=== PATIENT | male | born 1990 | race Hispanic/Latino ===

== ENCOUNTER 2021-05-15 17:48 | Emergency (ER) | payer OTHER ==
[2021-05-15 19:46] LABS: Absolute Lymphocytes (CBC) 2.5 K/uL (0.7-4.9); Basophils % 0.6 % (0-1.3); Hematocrit 40.7 % (39.6-49.0); Lymphocytes % 34.4 % (15.3-44.8); MPV 6.6 fL (7.6-11.3); RBC Red Blood Cell Count 4.72 M/uL (4.33-5.43)
[2021-05-15 19:47] LABS: Potassium 3.5 mmol/L (3.5-5.1); Sodium Level 140 mmol/L (136-145)
--- NOTE | 2021-05-15 19:57 | RAD REPORT ---
EXAM DESCRIPTION: CT - Head Brain Wo Cont - 05/15/2021 7:37 pm CLINICAL HISTORY: Headache / hypertension COMPARISON: None. TECHNIQUE: Computed axial tomography of the head was obtained. IV contrast was not requested. All CT scans are performed using dose optimization technique as appropriate and may include automated exposure control or mA/KV adjustment according to patient size. FINDINGS: An intracranial bleed is not seen . The ventricles are normal in caliber. No extra-axial fluid collection is noted. Fluid within the sinuses/ mastoids is not seen. IMPRESSION: No acute intracranial abnormality is seen. If patient's symptoms persist MRI of the bra in would be recommended.
[2021-05-15 20:00] LABS: ALT/SGPT 34 U/L (12-78); AST/SGOT 29 U/L (15-37); Albumin 3.9 g/dL (3.4-5.0); Alkaline Phosphatase 81 U/L (45-117); BUN Blood Urea Nitrogen 17 mg/dL (7-18); Bicarbonate 26 mmol/L (21-32); Bilirubin Direct < 0.1 mg/dL (0-0.2); Bilirubin Total 0.3 mg/dL (0.2-1.0); Glucose Level 101 mg/dL (74-106); Magnesium 2.2 mg/dL (1.8-2.4); NT PRO-BNP 17 pg/mL (<125); Protein, Total 8.2 g/dL (6.4-8.2); Troponin (Emerg Dept Use Only) < 0.02 ng/mL (0.0-0.045)
[2021-05-15 20:02] LABS: Protime INR 1.03
--- NOTE | 2021-05-15 20:04 | RAD REPORT ---
EXAM DESCRIPTION: Gela Angio05/15/2021 7:41 pm CLINICAL HISTORY: Headache/hypertension COMPARISON: None TECHNIQUE: 50 cc Isovue 370 was administered intravenously. 3D MIP reconstruction performed All CT scans are performed using dose optimization technique as appropriate and may include automated exposure control or mA/KV adjustment according to patient size. FINDINGS: The common carotid, internal carotid and external carotid arteries bilaterally are normal caliber. Plaque is not noted. The vertebral arteries are codominant without abnormality. No dissection seen. IMPRESSION: Unremarkable exam NASCET criteria used. Mild 0-49% stenosis Moderate 50-69% stenosis Severe 70-99% stenosis
--- NOTE | 2021-05-15 20:10 | RAD REPORT ---
EXAM DESCRIPTION: CTHead angio05/15/2021 7:40 pm CLINICAL HISTORY: Headache/hypertension COMPARISON: None TECHNIQUE: CT angiogram of the head was obtained. 3D MIPS reconstruction performed. All CT scans are performed using dose optimization technique as appropriate and may include automated exposure control or mA/KV adjustment according to patient size. FINDINGS: The basilar, internal carotid, anterior cerebral, middle cerebral and posterior cerebral a rteries are normal caliber. An aneurysm is not seen. A significant stenosis is not noted. IMPRESSION: Unremarkable CT angiogram head.
--- NOTE | 2021-05-15 20:17 | RAD REPORT ---
EXAM DESCRIPTION: Betsy Single View05/15/2021 7:52 pm CLINICAL HISTORY: Hypertension COMPARISON: none FINDINGS: Left lateral base is hazy probably secondary to overlying epicardial or subcutaneous fat. The lungs appear clear of acute infiltrate. The heart is normal size IMPRESSION: No acute abnormalities displayed. If patient's symptoms persist PA and lateral chest se jarad would be recommended
--- NOTE | 2021-05-15 20:42 | ER ---
Nurse's Notes [facility] Name: Graeme Haque Age: 31 yrs Sex: Male : 1990 Arrival Date: 05/15/2021 Time: 17:50 Bed 5 Private MD: Diagnosis: Headache;Elevated Blood Pressure Presentation: 05/15 18:03 Chief complaint: Patient states: yesterday i started with a headache and my blood tw2 pressure was a little high. the headache went away. but today my pressure was high and i started feeling like someone was sticking me with needles. i dont know if i just saw my blood pressure and it was in my mind. but it is not doing that now. Coronavirus screen: headache, Client presents with at least one sign or symptom that may indicate coronavirus-19. Standard/surgical mask placed on the client. Provider contacted for isolation considerations. Ebola Screen: Patient denies travel to an Ebola-affected area in the 21 days before illness onset. Initial Sepsis Screen: Does the patient meet any 2 criteria? No. Patient's initial sepsis screen is negative. Does the patient have a suspected source of infection? No. Patient's initial sepsis screen is negative. Risk Assessment: Do you want to hurt yourself or someone else? Patient reports no desire to harm self or others. Onset of symptoms was May 15, 2021. 18:03 Method Of Arrival: Ambulatory tw2 18:03 Acuity: CLAUDETTE 2 tw2 Triage Assessment: 18:08 Headache History: The patient has had previous headaches and this one is different than tw2 previous episodes, and this one is more severe than previous episodes. General: Appears in no apparent distress. well groomed, Behavior is calm, cooperative, appropriate for age. Pain: Complains of pain in left protestant and left side of head Pain currently is 3 out of 10 on a pain scale. Pain began 1 day ago. Also complains of no other associated symptoms. Historical: - Allergies: 18:06 diclofenac sodium (Rash); tw2 - Home Meds: 18:06 None [Active]; tw2 - PMHx: 18:06 Hypercholesterolemia; tw2 - PSHx: 18:06 None; tw2 - Immunization history:: Client reports receiving the 2nd dose of the Covid vaccine. - Social history:: Smoking status: Patient denies any tobacco usage or history of. Screenin:15 Abuse screen: Denies threats or abuse. Denies injuries from another. Nutritional dc2 screening: No deficits noted. Tuberculosis screening: No symptoms or risk factors identified. Never had TB. Fall Risk None identified. No fall in past 12 months (0 pts). No secondary diagnosis (0 pts). IV access (20 points). Ambulatory Aid- None/Bed Rest/Nurse Assist (0 pts). Gait- Normal/Bed Rest/Wheelchair (0 pts) Mental Status- Oriented to own ability (0 pts). Total Singh Fall Scale indicates No Risk (0-24 pts). Assessment: 20:15 General: Appears in no apparent distress. comfortable, obese, well groomed, Behavior is dc2 calm, cooperative. Pain: Denies pain. Neuro: No deficits noted. Level of Consciousness is awake, alert, obeys commands, Oriented to person, place, time, situation. Cardiovascular: No deficits noted. Denies chest pain, shortness of breath, Heart tones present. Respiratory: No deficits noted. Airway is patent Breath sounds are clear bilaterally. GI: No deficits noted. No signs and/or symptoms were reported involving the gastrointestinal system. Abdomen is round non-distended, Bowel sounds present X 4 quads. : No signs and/or symptoms were reported regarding the genitourinary system. Derm: No deficits noted. No signs and/or symptoms reported regarding the dermatologic system. Musculoskeletal: No deficits noted. No signs and/or symptoms reported regarding the musculoskeletal system. Vital Signs: 18:03 BP 148 / 101; Pulse 99; Resp 18; Temp 97.7(TE); Pulse Ox 100% on R/A; Weight 113.4 kg tw2 (R); Height 5 ft. 11 in. (180.34 cm); Pain 3/10; 20:15 BP 144 / 94; Pulse 80; Resp 18; Temp 97.5; Pulse Ox 99% ; Pain 0/10; dc2 18:03 Body Mass Index 34.87 (113.40 kg, 180.34 cm) tw2 ED Course: 17:50 Patient arrived in ED. mr 18:06 Triage completed. tw2 18:06 Arm band placed on. tw2 19:02 Orlando Kyle PA is PHCP. [facility] 19:02 Brad Shepherd MD is Attending Physician. jmm 19:29 Inserted saline lock: 20 gauge in left antecubital area, using aseptic technique. Blood dh4 collected. 19:37 CT Head Brain wo Cont In Process Unspecified. EDMS 19:40 CT Head Angio In Process Unspecified. EDMS 19:41 CT Neck Angio In Process Unspecified. EDMS 19:52 XRAY Chest (1 view) In Process Unspecified. EDMS 20:15 Patient has correct armband on for positive identification. Bed in low position. Call dc2 light in reach. Side rails up X 1. 20:15 No provider procedures requiring assistance completed. dc2 20:18 Terri Avelar, RN is Primary Nurse. dc2 20:30 IV discontinued, intact, bleeding controlled, No redness/swelling at site. Pressure dc2 dressing applied. Administered Medications: No medications were administered Outcome: 20:42 Discharge ordered by MD. [facility] 20:45 Discharged to home ambulatory. dc2 20:45 Condition: stable 20:45 Discharge instructions given to Instructed on discharge instructions, follow up and referral plans. Demonstrated understanding of instructions, follow-up care. 21:01 Patient left the ED. dc2 Signatures: Dispatcher [employer] EDMT Orlando Kyle PA PA [facility] Karin Vidal mr Donna Henderson, RN RN tw2 Jose L Raines [facility] Sandrita Willard, RN RN vg1 Terri Avelar, RN RN dc2 Corrections: (The following items were deleted from the chart) 18:08 18:06 PMHx: Hypertensive disorder; tw2 tw2 19:24 19:23 General: Appears in no apparent distress. comfortable, Behavior is calm, vg1 cooperative, vg1
--- NOTE | 2021-05-15 20:43 | EDPHYS ---
Physician Documentation [facility] [place], [place] Name: Graeme Haque Age: 31 yrs Sex: Male : 1990 Arrival Date: 05/15/2021 Time: 17:50 Bed 5 Private MD: ED Physician Brad Shepherd HPI: 05/15 19:11 This 31 yrs old Male presents to ER via Ambulatory with complaints of jmm Headache, High Blood Pressure. 19:11 The patient complains of pain to the left side of head and left buddhist. Onset: The jmm symptoms/episode began/occurred 1 day(s) ago. Associated signs and symptoms: Pertinent positives: paresthesias, Pertinent negatives: altered mental status, fever, malaise, nausea, neck stiffness, rash, sinus congestion, sinus tenderness, vision changes, vision loss, vomiting, weakness, vertigo. Headache History:. Is a 31-year-old male with history of hyperlipidemia the presents emerged from with complaints of headache which is left-sided beginning yesterday. More intense than previous headaches patient states. Patient states that headache is now gone down but notices blood pressure was significantly elevated. Patient is not currently taking medication for hyperlipidemia or hypertension. Denies chest pain or shortness of breath. Denies decreased urination, abdominal pain or any other symptoms.. Historical: - Allergies: 18:06 diclofenac sodium (Rash); tw2 - Home Meds: 18:06 None [Active]; tw2 - PMHx: 18:06 Hypercholesterolemia; tw2 - PSHx: 18:06 None; tw2 - Immunization history:: Client reports receiving the 2nd dose of the Covid vaccine. - Social history:: Smoking status: Patient denies any tobacco usage or history of. ROS: 19:11 Constitutional: Negative for fever, chills, and weight loss, Cardiovascular: Negative jmm for chest pain, palpitations, and edema, Respiratory: Negative for shortness of breath, cough, wheezing, and pleuritic chest pain, Abdomen/GI: Negative for abdominal pain, nausea, vomiting, diarrhea, and constipation. 19:11 Neuro: Positive for headache. 19:11 All other systems are negative. Exam: 19:11 Constitutional: This is a well developed, well nourished patient who is awake, alert, jmm and in no acute distress. Head/Face: atraumatic. Eyes: EOMI, no conjunctival erythema appreciated ENT: Moist Mucus Membranes Neck: Trachea midline, Supple Chest/axilla: Normal chest wall appearance and motion. Cardiovascular: Regular rate and rhythm. No edema appreciated Respiratory: Normal respirations, no respiratory distress appreciated Abdomen/GI: Non distended, soft Back: Normal ROM Skin: General appearance color normal MS/ Extremity: Moves all extremities, no obvious deformities appreciated, no edema noted to the lower extremities Neuro: Awake and alert, normal gait Psych: Behavior is normal, Mood is normal, Patient is cooperative and pleasant Vital Signs: 18:03 BP 148 / 101; Pulse 99; Resp 18; Temp 97.7(TE); Pulse Ox 100% on R/A; Weight 113.4 kg tw2 (R); Height 5 ft. 11 in. (180.34 cm); Pain 3/10; 20:15 BP 144 / 94; Pulse 80; Resp 18; Temp 97.5; Pulse Ox 99% ; Pain 0/10; dc2 18:03 Body Mass Index 34.87 (113.40 kg, 180.34 cm) tw2 MDM: 19:11 Patient medically screened. [facility] 20:41 Data reviewed: vital signs, nurses notes. Counseling: I had a detailed discussion with bola the patient and/or guardian regarding: the historical points, exam findings, and any diagnostic results supporting the discharge/admit diagnosis, lab results, radiology results, the need for outpatient follow up, to return to the emergency department if symptoms worsen or persist or if there are any questions or concerns that arise at home. ED course: Patient is alert nontoxic in appearance in the ED. CT and CTA of the head are negative. I do not currently suspect subarachnoid hemorrhage. Patient advised follow-up PCP for further evaluation for hypertension otherwise given strict return precautions. Patient understood and agrees to plan of care.. 05/15 19:13 Order name: Basic Metabolic Panel; Complete Time: 20:00 [facility] 05/15 19:13 Order name: CBC with Diff; Complete Time: 19:59 [facility] 05/15 19:13 Order name: LFT's; Complete Time: 20:00 [facility] 05/15 19:13 Order name: Magnesium; Complete Time: 20:00 [facility] 05/15 19:13 Order name: NT PRO-BNP; Complete Time: 20:00 [facility] 05/15 19:13 Order name: PT-INR; Complete Time: 20:21 [facility] 05/15 19:13 Order name: Troponin (emerg Dept Use Only); Complete Time: 20:00 [facility] 05/15 19:13 Order name: XRAY Chest (1 view); Complete Time: 20:21 [facility] 05/15 19:13 Order name: EKG; Complete Time: 19:14 [facility] 05/15 19:13 Order name: Cardiac monitoring; Complete Time: 19:30 [facility] 05/15 19:13 Order name: EKG - Nurse/Tech; Complete Time: 19:30 [facility] 05/15 19:13 Order name: CT Head Brain wo Cont; Complete Time: 19:59 [facility] 05/15 19:13 Order name: CT Head Angio; Complete Time: 20:11 [facility] 05/15 19:13 Order name: CT Neck Angio; Complete Time: 20:06 [facility] 05/15 19:13 Order name: IV Saline Lock; Complete Time: 19:29 [facility] 05/15 19:13 Order name: Labs collected and sent; Complete Time: 19:29 [facility] 05/15 19:13 Order name: O2 Per Protocol; Complete Time: 19:29 [facility] 05/15 19:13 Order name: O2 Sat Monitoring; Complete Time: 19:29 [facility] Administered Medications: No medications were administered Disposition: 22:36 Co-signature as Attending Physician, Brad Shepherd MD. 7 Disposition Summary: 05/15/21 20:42 Discharge Ordered Location: Home [facility] Condition: Stable [facility] Diagnosis - Headache jmm - Elevated Blood Pressure [facility] Followup: [facility] - With: Private Physician - When: 2 - 3 days - Reason: Recheck today's complaints, Continuance of care, Re-evaluation by your physician Discharge Instructions: - Discharge Summary Sheet [facility] - General Headache Without Cause jmm - Hypertension, Adult [facility] Forms: - Medication Reconciliation Form [facility] - Thank You Letter jmm - Antibiotic Education jmm - Prescription Opioid Use [facility] Signatures: Dispatcher [employer] EDOrlando George PA PA jmm Wise, Tara, RN RN tw2 Brad Shepherd MD MD 7 Corrections: (The following items were deleted from the chart) 18:08 18:06 PMHx: Hypertensive disorder; tw2 tw2
[2021-05-15 21:22] VITALS: BP 144/94; TEMP 97.5; O2SAT 99
--- NOTE | 2021-05-16 18:25 | EKG ---
Test Date: 2021-05-15 Test Time: 19:26:46 [employer] Car Get [employer] Mechanic: MARCIANO MEASUREMENT RESULTS: Intervals: Rate: 83 [place]: 152 QRSD: 82 QT: 364 QTc: 427 [place]: P: 34 [place]: 152 QRS: 17 T: 45 INTERPRETIVE STATEMENTS: Normal sinus rhythm Normal ECG No previous ECG available for comparison Electronically Signed On 05-16-21 18:23:36 [employer]ACHINE [employer] by Chase Banegas
== END 2021-05-15 21:01 | disposition home or self-care (01) ==
LOC: ER 17:48
DX: R51.9 Headache, unspecified (principal); R03.0 Elevated blood-pressure reading, without diagnosis of hypertension
CPT/HCPCS: 93005; 85025; 80048; 36415; 83735; 85610; 82565; 80076; 84484; 83880; 70450; 70496; 70498; 71045; 99283; Q9967